=== PATIENT | male | born 1975 | race American Indian/Alaskan Native ===

== ENCOUNTER 2017-05-20 14:18 | Emergency (ER) | payer BC, OTHER ==
[2017-05-20 14:19] VITALS: BMI 38.0
[2017-05-20 14:27] VITALS: BP 136/87; PULSE 93; RESP 18; TEMP 98.8; O2SAT 98
[2017-05-20] MEDS ORDERED: Sodium Chloride 0.9% 1,000 ML IV STA (14:40)
[2017-05-20] MEDS ORDERED: Sodium Chloride 0.9% 0 ML ONE (14:46)
--- NOTE | 2017-05-20 14:46 | C.PDOC ---
History Of Present Illness 41 y/o M p/w abdominal pain that he states is chronic. He has an endoscopy scheduled tomorrow. He states that when he lies down at night, it is worse and seems to regurgitate into his throat. He states he has had CT scans for it in the past and they have been normal. He denies fever, vomiting, diarrhea, dyspnea. He states his symptoms are no different than usual. Time Seen by Provider: 05/20/17 14:27 Chief Complaint (Nursing): Abdominal Pain Past Medical History Vital Signs: Last Vital Signs Temp 98.8 F 05/20/17 14:26 Pulse 93 H 05/20/17 14:26 Resp 18 05/20/17 14:26 BP 136/87 05/20/17 14:26 Pulse Ox 98 05/20/17 14:26 - Medical History PMH: Anemia, Asthma, Gall Bladder Disease (LAP LEROY ON 08/31/15), Pancreatitis Denies: Depression, HTN, Chronic Kidney Disease Surgical History: Cholecystectomy Denies: Pacemaker - [facility] Procedures C.A.T. SCAN OF ABDOMEN (09/17/14) DX ULTRASOUND-DIGESTIVE (08/20/14) ESOPHAGOGASTRODUODENOSCOPY [EGD] W/CLOSED BIOPSY (08/20/14) INJECT/INFUSE ELECTROLYT (01/06/15) INJECT/INFUSE NEC (10/26/14) PERCUTAN NEEDLE BX OF LIVER (09/17/14) PHYSICAL THERAPY NEC (01/06/14) Family History: States: Unknown Family Hx - Social History Hx Tobacco Use: No Hx Alcohol Use: No Hx Substance Use: No - Immunization History Hx Tetanus Toxoid Vaccination: No Hx Influenza Vaccination: Yes Hx Pneumococcal Vaccination: No Review Of Systems Except As Marked, All Systems Reviewed And Found Negative. Constitutional: Negative for: Fever Cardiovascular: Negative for: Chest Pain Physical Exam - Physical Exam Additional Physical Exam Comments: Gen: NAD Head: NC/AT Eyes: PERRL ENT: MMM Neck: No midline tenderness. CV: Radial pulses 2+. Regular rate. Lungs: CTA b/l Abd: Epigastric abdominal tenderness. Skin: No rash Ext: FROM x 4. Neuro: No focal deficit. ED Course And Treatment O2 Sat by Pulse Oximetry: 98 Against Medical Advice - AMA Patient Left Against Medical Advice: The patient declines admission to the hospital and wishes to leave the Emergency Department. This action is against my medical advice. This decision was made with informed refusal. The patient was told that admission to the hospital is necessary. Explanation of the reasons why were discussed. The risks of leaving were explained to the patient and include, but are not limited to, worsening of known or currently unknown conditions, permanent disability and from undiagnosed or untreated conditions. The patient has the capacity to make this informed decision and understands my explanation of the current medical problem and risks of leaving. The patient voluntarily accepts these risks and signed an AMA form documenting our conversation. The patient was given the opportunity to ask questions and reconsider. The patient was encouraged to return to the Emergency Department at any time for further care. Medical Decision Making Medical Decision Making: Will check labs and urine and give supportive medications. Patient refused labs and medications. States he will go home and follow up tomorrow. Vitals normal. EKG NSR 80 bpm, no ST elevations. Disposition - Disposition Disposition: AGAINST MEDICAL ADVICE Disposition Time: 14:47 Condition: STABLE Instructions: Upper Endoscopy (GEN) Forms: [facility] ([place]), (AMA) Informed Refusal - Clinical Impression Clinical Impression: Abdominal pain, Left against medical advice
--- NOTE | 2017-05-21 13:38 | CARD ---
APPROVED REPORT EKG Measurement Heart [id number] <Conclusion> Normal sinus rhythm Minimal voltage criteria for LVH, may be normal variant Borderline ECG
== END 2017-05-20 15:08 | disposition left against medical advice (07) ==
LOC: C.ER 14:18
DX: R10.9 Unspecified abdominal pain (principal)